=== PATIENT | female | born 1985 | race Asian ===

== ENCOUNTER 2016-11-15 17:22 | Observation (INO) | payer OTHER ==
[2016-11-15] MEDS ORDERED: PRENATAL-U CAPS1 CAP PO (19:18)
[2016-11-15] MEDS ORDERED: IRON325 M3 PO (19:20)
[2016-11-15] MEDS ORDERED: PRENATAL VITAM1 EA11 PO (19:20)
[2017-02-28] MEDS ORDERED: IBUPROFEN800 M1 PO (20:12)
[2017-02-28] MEDS ORDERED: COLACE100 M1 PO (20:13)
[2017-02-28] MEDS ORDERED: PERCOCET 5-3251 EACH PO (20:13)
== END 2016-11-15 19:35 ==
LOC: LDR 17:22
PROVIDERS: ADMIT Obstetrics & Gynecology
DX: Z03.71 Encounter for suspected problem with amniotic cavity and membrane ruled out (principal); Z3A.25 25 weeks gestation of pregnancy; Z79.899 Other long term (current) drug therapy; Z91.048 Other nonmedicinal substance allergy status; Z90.89 Acquired absence of other organs; Z98.890 Other specified postprocedural states

== ENCOUNTER 2017-02-20 13:54 | Observation (INO) | payer OTHER ==
[~2017-02-20 13:54] MED LIST: IRON325 M3 PO; PRENATAL VITAM1 EA11 PO; PRENATAL-U CAPS1 CAP PO
[2017-02-28] MEDS ORDERED: IBUPROFEN800 M1 PO (20:12)
[2017-02-28] MEDS ORDERED: COLACE100 M1 PO (20:13)
[2017-02-28] MEDS ORDERED: PERCOCET 5-3251 EACH PO (20:13)
== END 2017-02-20 16:35 ==
LOC: LDR 13:54
PROVIDERS: ADMIT Obstetrics & Gynecology
DX: O47.1 False labor at or after 37 completed weeks of gestation (principal); Z3A.37 37 weeks gestation of pregnancy